=== PATIENT | female | born 1990 | race Hispanic/Latino ===

== ENCOUNTER 2017-03-21 16:54 | Outpatient (CLI) | payer MEDICAID ==
[2017-03-21] MEDS ORDERED: LACTATED RINGERS 500 ML IV ONE (19:30)
[2017-03-21 23:14] VITALS: BP 125/87
== END 2017-03-21 23:32 | disposition home or self-care (01) ==
LOC: TRG 16:54
PROVIDERS: ATTEND Obstetrics & Gynecology
DX: O47.03 False labor before 37 completed weeks of gestation, third trimester (principal); Z3A.28 28 weeks gestation of pregnancy; Z87.891 Personal history of nicotine dependence

== ENCOUNTER 2017-12-10 16:55 | Emergency (ER) | payer MEDICAID ==
[2017-12-10 17:16] VITALS: BP 124/68
== END 2017-12-10 20:45 | disposition left against medical advice (07) ==
LOC: ED 16:55
DX: T14.8XXA Other injury of unspecified body region, initial encounter (principal); Z53.21 Procedure and treatment not carried out due to patient leaving prior to being seen by health care provider